=== PATIENT | male | born 1955 | race Hispanic/Latino ===

== ENCOUNTER 2019-06-30 05:46 | Inpatient (IN) | payer BC ==
[2019-06-30] MEDS ORDERED: metroNIDAZOLE 500 MG/100 ML BAG ONE (06:52)
--- NOTE | 2019-06-30 07:45 | CT ---
PRELIMINARY REPORT/[facility]/EMERGENCY AFTER HOURS PROCEDURE: PROCEDURE INFORMATION: Exam: CT Abdomen And Pelvis With Contrast Exam date and time: 06/30/2019 6:10 AM Clinical history: 63 years old, male; Abdominal pain; Patient HX: 63 y/o m presents to ED via transfe r from another ED for sepsis, influenza. He was seen by his pcp x 2 days ago for illness including fe allan with tmax at that time of 102f. PT was dx with influenza at that time and was provided with RX for tamiflu and zofran. PT was prompted to go to other ED early this morning for evaluation o f worsening diarrhea. PT reports > 10 episodes of diarrhea within the past 24 hours. PT states he als o had recent pcp eval for flank pain, nephrolithiasis TECHNIQUE: Imaging protocol: Computed tomography of the abdomen and pelvis with intravenous contrast. COMPARISON: No relevant prior studies available. FINDINGS: Liver: Normal. No mass. Gallbladder and bile ducts: No calcified stones. No ductal dilation. Pancreas: No discrete mass. No ductal dilation. Spleen: No splenomegaly. Adrenals: No mass. Kidneys and ureters: Normal. No hydronephrosis. Stomach and bowel: No obstruction or perforation. Fluid content in colon with mild wall thickening. Appendix: No evidence of appendicitis. Intraperitoneal space: No free air or fluid. No significant fluid collection. Vasculature: No abdominal aortic aneurysm. Lymph nodes: No enlarged lymph nodes. Bladder: Unremarkable. Reproductive: Unremarkable. Bones/joints: Unremarkable. No acute fracture. Soft tissues: Unremarkable. IMPRESSION: Fluid content in colon with mild wall thickening is suggestive of colitis. Thank you for allowing us to participate in the care of your patient. Dictated and Authenticated by: Beatriz Romero MD 06/30/2019 6:38 AM Central Time ([place] & [place]) FINAL REPORT ABDOMEN CT WITH CONTRAST PELVIC CT WITH CONTRAST: Date: 06/30/19 HISTORY: Sepsis. Influenza. Fever. FINDINGS: Appropriate enhancement of the solid organs. Unremarkable gallbladder. Patent portal vein. No evidenc e of bowel obstruction. Limited evaluation due to lack of oral contrast. Normal caliber appendix. Flu id attenuation, scattered throughout the colon, is nonspecific. No evidence of obstruction. Diverticu losis, without evidence of diverticulitis. There are enlarged retroperitoneal and mesenteric lymph no brenden. Correlate for infectious, inflammatory process. Malignancy cannot be entirely excluded, though i s less favored. No acute abnormality in the pelvis. IMPRESSION: This report is in agreement with the preliminary report by [facility]. 1. Scattered fluid in the colon is nonspecific. Correlate clinically for colitis. 2. Diverticulosis, without evidence of diverticulitis. 3. Normal caliber appendix. 4. Enlarged retroperitoneal and mesenteric lymph nodes which may be reactive and due to infectious/i nflammatory process. Correlate for mesenteric lymphadenitis. Neoplastic process cannot be entirely ex cluded. Clinical correlation is essential. CODE T. POS: MARVEL
[2019-06-30 08:04] LABS: Lactic Acid 2.4 mmol/L (0.5-2.2)
[2019-06-30] MEDS ORDERED: Ondansetron ODT 4 MG TAB PO PRN (09:19)
[2019-06-30] MEDS ORDERED: Ondansetron PF 4 MG/2 ML Vial IVP PRN (09:19)
[2019-06-30] MEDS ORDERED: HumaLOG 300 UNITS/3 ML VIAL SC PRN ×2 (09:53)
[2019-06-30] MEDS ORDERED: Dextrose 50% Abboject 50 ML SYRINGE SLOW IVP PRN (09:53)
[2019-06-30] MEDS ORDERED: Insulin Regular 300 UNITS/3 ML VIAL SC PRN (09:53)
[2019-06-30] MEDS ORDERED: Dextrose 5% in Water 1,000 ML IV PRN (09:53)
[2019-06-30] MEDS ORDERED: Sodium Chloride 0.45% 1,000 ML IV SCH (10:00)
--- NOTE | 2019-06-30 10:01 | PDOC.HHP ---
Hospitalist HPI - History of Present Illness Severe diarrhea and fever History of Present Illness: Mr. Ann is a pleasant 63 year old man who presents with complaints of severe diarrhea that started on Friday afternoon. He reports going to lunch with his on Friday at a restaurant and having soup, they returned and had dinner there as well. Friday he started to feel unwell before going to [employer]. He began feeling weak and unable to stand. Upon returning home Friday he began to have severe diarrhea. It persisted through to Friday and so he saw his primary care physician. He was tested for Flu and treated with Tamiflu. States he continued to feel unwell but the diarrhea slowed down some yesterday. Denies any bloody stools. Maintained fluid intake with water, pedialyte and gatorade. No associated vomiting but he had mild nausea on Friday and given antiemetic by his PCP. Yesterday he began to have chills and a fever. At 3 am this morning he woke up to have another watery stool and reports feeling weak with chills. He had a temp of 100.8 and per his he was hyperventilating. ED Course: Patient initially presented to [facility] and underwent labs which showed a left shift. Lactic acid elevated at 3.6 and he was noted to have an MILAGROS. His creatinine was 1.64 and GFR was 42, normally it is >90. He was given IV fluids. UA was done and unremarkable. CXR also unremarkable. CT A/P done and apparently showed nonspecific changes as per discussion with Dr. Hunter who spoke with ED physician. Patient was treated with Flagyl. Hospitalist ROS - Review of Systems Constitutional: reports: fever (has settled.), chills, weakness, malaise ( significantly improved) Eyes: denies: pain, vision change, conjunctivae inflammation, eyelid inflammation, redness, other ENT: denies: ear pain, ear discharge, nose pain, nose discharge, nose congestion , mouth pain, mouth swelling, throat pain, throat swelling, other Respiratory: denies: cough, dry, shortness of breath, hemoptysis, SOB with excertion, pleuritic pain, sputum, wheezing, other Cardiovascular: reports: light headedness (has improved). denies: chest pain, palpitations, orthopnea, paroxysmal noc. dyspnea, edema, other Gastrointestinal: reports: nausea, abdominal pain (generalized abdominal cramping, mild per patient), diarrhea. denies: vomiting, constipation, melena, hematochezia, other Genitourinary: reports: other (urine dark in appearance). denies: dysuria, frequency, incontinence, hematuria, retention Musculoskeletal: denies: neck pain, shoulder pain, arm pain, back pain, hand pain, leg pain, foot pain, other Skin: denies: rash, lesions, mary jo, bruising, other Neurological: denies: weakness, numbness, incoordination, change in speech, confusion, seizures, other Hospitalist History - Past Medical History Cardiac: reports: CAD, HTN Musculoskeletal: reports: Osteoarthritis Renal/: reports: Other (Nephrolithiasis) Endocrine: reports: Diabetes - Past Surgical History Past Surgical History: reports: Other (Cardiac stent Penile surgery) - Social History Smoking Status: Never smoker Alcohol: reports: None Drugs: reports: none Living Situation: With Family Activity level: independent ambulation - Exam General Appearance: NAD, awake alert Eye: PERRL, anicteric sclera ENT: normocephalic atraumatic, no oropharyngeal lesions, dry oral mucosa Neck: supple, no lymphadenopathy Heart: RRR, no murmur, no gallops, no rubs, normal peripheral pulses Respiratory: CTAB, no wheezes, no rales, no ronchi, normal chest expansion, no tachypnea Gastrointestinal: soft, non-tender, non-distended, normal bowel sounds, no palpable masses, no hepatomegaly, no guarding, no rigidity Gastrointestinal - other findings: reports mild diffuse abdominal soreness, not particularly tender on exam Extremities: no cyanosis, no edema Skin: no lesions, no rashes Neurological: cranial nerve grossly intact, normal sensation to touch Musculoskeletal: normal tone, normal strength, no muscle wasting Psychiatric: normal affect, normal behavior, A&O x 3 Hospitalist Results - Labs Result Diagrams: 06/30/19 14:31 Lab results: Lactic Acid 2.4 mmol/L (0.5-2.2) H 06/30/19 07:35 - Radiology Interpretation CT scan - abdomen Status: report reviewed by me (CT A/P: scattered fluid in the colon, nonspecific and clinically correlated with colitis. Divertuclosis present without diverticulitis. Normal appendix. Enlarged retroperitoneal and mesenteric lymph nodes, likely reactive from infectious process.) Hospitalist H&P A/P - Problem (1) Septic colitis Code(s): A09 - INFECTIOUS GASTROENTERITIS AND COLITIS, UNSPECIFIED Status: Acute (2) Fever and chills Code(s): R50.9 - FEVER, UNSPECIFIED Status: Acute (3) MILAGROS (acute kidney injury) Code(s): N17.9 - ACUTE KIDNEY FAILURE, UNSPECIFIED Status: Acute (4) Diabetes mellitus Code(s): E11.9 - TYPE 2 DIABETES MELLITUS WITHOUT COMPLICATIONS Status: Chronic (5) Hypertension Code(s): I10 - ESSENTIAL (PRIMARY) HYPERTENSION Status: Chronic (6) CAD (coronary artery disease) Code(s): I25.10 - ATHSCL HEART DISEASE OF [place] CORONARY ARTERY W/O ANG PCTRS Status: Chronic - Plan Plan: Continue IV fluids and IV antibiotics. Stool studies pending. Contact precautions. Clear liquid diet. Fever and chills have settled. Lactic acid improving. Continue to monitor renal function. Respiratory Viral Panel pending. Monitor glucose. In light of MILAGROS hold home meds. Insulin sliding scale ordered. Monitor BP. He is on low dose Lisinopril only. Will hold for now. CODE STATUS: FULL Surrogate Decision Maker: His Uzma Ann.
[2019-06-30] MEDS ORDERED: Iopamidol 370 76% 100 ML VIAL ONE (10:10)
[2019-06-30 10:29] VITALS: BMI 27.7
[2019-06-30] MEDS: Acetaminophen 325 MG TAB PO PRN ×2 (12:37→18:25)
[2019-06-30] MEDS ORDERED: Dextrose 5 %-0.45 % NaCl 1,000 ML IV SCH (14:15)
[2019-06-30 15:03] LABS: Anion Gap 13 mmol/L (10-20); BUN (Urea Nitrogen) 20 mg/dL (8.4-25.7); Calc. Creatinine Clearance 76 mL/min (70-130); Calcium 8.5 mg/dL (7.8-10.44); Carbon Dioxide 17 mmol/L (23-31); Chloride 105 mmol/L (98-107); Estimated GFR-MDRD 67; Glucose 182 mg/dL (80-115); Magnesium 1.9 mg/dL (1.6-2.6); Sodium 132 mmol/L (136-145)
[2019-06-30] MEDS: metroNIDAZOLE 500 MG in Premix Bag 1 BAG IVPB SCH ×2 (15:24→20:15)
[2019-06-30] MEDS: Sodium Chloride 0.45% 1,000 ML IV SCH (15:25)
[2019-06-30 18:38] LABS: Lactic Acid 2.4 mmol/L (0.5-2.2)
[2019-06-30] MEDS: Zolpidem Tartrate 5 MG TAB PO SCH (20:15)
[2019-06-30] MEDS ORDERED: Non-Formulary Item 1 EACH (Zolpidem Tartrate [Zolpidem Tartrate] 10 MG) PO SCH (21:00)
[2019-07-01] MEDS: Sodium Chloride 0.45% 1,000 ML IV SCH ×2 (01:12→13:13)
[2019-07-01] MEDS: metroNIDAZOLE 500 MG in Premix Bag 1 BAG IVPB SCH ×3 (04:38→21:45)
[2019-07-01] MEDS ORDERED: Potassium Chloride 20 MEQ TAB PO SCH (08:30)
--- NOTE | 2019-07-01 08:35 | PDOC.HOSPP ---
- Subjective Encounter Date: 07/01/19 Encounter Time: 08:30 Subjective: profuse watery diarrhea persists, no blood or significant abd pain - Objective Vital Signs & Weight: Vital Signs (12 hours) Temp Pulse Resp BP Pulse Ox 07/01/19 07:05 98.2 F 94 17 129/74 95 07/01/19 05:40 100.4 F H 07/01/19 04:30 103.1 F H 106 H 18 149/71 H 93 L 07/01/19 00:00 98.8 F 103 H 20 127/69 93 L Weight Weight 177 lb 1 oz I&O: 06/30/19 07/01/19 07/02/19 06:59 06:59 06:59 Intake Total 1700 Balance 1700 Result Diagrams: 06/30/19 14:31 Additional Labs: Accuchecks 07/01/19 06/30/19 06/30/19 04:51 19:19 15:38 POC Glucose 120 H 147 H 146 H 06/30/19 12:04 POC Glucose 147 H Hospitalist ROS - Medication Medications: Active Medications Generic Name Dose Route Start Last Admin Trade Name Freq PRN Reason Stop Dose Admin Acetaminophen 650 mg 06/30/19 12:12 06/30/19 18:25 Tylenol PO 650 mg Q4H PRN Administration Headache/Fever or Pain Metronidazole 500 mg/ Device 100 mls @ 100 mls/hr 06/30/19 14:00 07/01/19 04: 38 IVPB 100 mls Q8HR ARTURO Administration Sodium Chloride 1,000 mls @ 100 mls/hr 06/30/19 14:15 07/01/19 01:12 1/2 Normal Saline IV 1,000 mls .Q10H ARTURO Administration Sodium Chloride 10 ml 06/30/19 21:00 06/30/19 20:16 Flush - Normal Saline IVF 10 ml Q12HR ARTURO Administration Zolpidem Tartrate 10 mg 06/30/19 21:00 06/30/19 20:15 Ambien PO 10 mg HS ARTURO Administration - Exam General Appearance: awake alert Neck: no JVD Respiratory: CTAB, no wheezes Gastrointestinal: soft, non-tender, non-distended Gastrointestinal - other findings: hyperactive bowel sounds Extremities: no edema Hosp A/P (1) Infectious gastroenteritis and colitis, unspecified Code(s): A09 - INFECTIOUS GASTROENTERITIS AND COLITIS, UNSPECIFIED Status: Acute (2) Sepsis syndrome Code(s): [id number] - Status: Acute (3) Bacteremia Code(s): R78.81 - BACTEREMIA Status: Acute (4) Acute kidney failure Status: Acute Qualifiers: Acute renal failure type: unspecified Qualified Code(s): N17.9 - Acute kidney failure, unspecified (5) Lactic acid acidosis Code(s): E87.2 - ACIDOSIS Status: Acute (6) DM type 2 (diabetes mellitus, type 2) Status: Acute Qualifiers: Diabetes mellitus director of alumni relations insulin use: without halfway use Diabetes mellitus complication status: without complication Qualified Code(s): E11.9 - Type 2 diabetes mellitus without complications - Plan iv antibx- change cipro to rocephn iv fluids accu/ssselected home meds- lald ZARIA due to increased creatinine GI consult
[2019-07-01] MEDS: Gabapentin 300 MG CAP PO SCH ×2 (09:30→20:10)
[2019-07-01] MEDS: Atorvastatin Calcium 20 MG TAB PO SCH (09:30)
[2019-07-01] MEDS ORDERED: FLU VACC TS2019-20(65YR UP)/PF 180 MCG/0.5 ML SYRINGE IM ONE (09:30)
[2019-07-01] MEDS: Aspirin 81 mg Enteric Coated Tablet PO SCH (09:30)
[2019-07-01] MEDS: cefTRIAXone\\ROCEPHIN 2 GM in Sodium Chloride 0.9% 100 ML IVPB SCH (10:26)
[2019-07-01] MEDS: Acetaminophen 325 MG TAB PO PRN (12:16)
[2019-07-01] MEDS: metFORMIN 500 MG TAB PO SCH (17:50)
[2019-07-01] MEDS: NS 0.9% w/ 20 MEQ KCL 1,000 ML/1,000 ML BAG IV SCH (20:10)
[2019-07-01] MEDS: Zolpidem Tartrate 5 MG TAB PO SCH (21:45)
[2019-07-02] MEDS: Acetaminophen 325 MG TAB PO PRN (00:46)
[2019-07-02] MEDS: metroNIDAZOLE 500 MG in Premix Bag 1 BAG IVPB SCH ×3 (05:12→21:57)
[2019-07-02] MEDS: NS 0.9% w/ 20 MEQ KCL 1,000 ML/1,000 ML BAG IV SCH (05:12)
[2019-07-02 07:19] LABS: #Eosinphils 0.1 thou/uL (0.0-0.7); #Lymphocytes 1.7 thou/uL (1.20-3.40); #Monocytes 1.1 thou/uL (0.11-0.59); #Neutrophils 4.2 thou/uL (1.40-6.50); %Basophils 0.4 % (0.0-1.0); %Eosinophils 1.1 % (0.0-10.0); %Lymphocytes 24.5 % (21.0-51.0); %Monocytes 14.9 % (0.0-10.0); %Neutrophils 59.2 % (42.0-75.0); Hemoglobin 11.7 g/dL (14.0-18.0); Mean Corpuscular HGB CONC 35.5 g/dL (32.0-36.0); Mean Corpuscular Hemoglobin 31.5 pg (27.0-31.0); Mean Corpuscular Volume 88.9 fL (78.0-98.0); Mean Platelet Volume 6.1 fL (7.4-10.4); Platelet Count 357 thou/uL (130-400); RBC Distribution Width 11.5 % (11.5-14.5); Red Blood Cell (RBC) Count 3.73 mill/uL (4.70-6.10)
[2019-07-02 07:51] LABS: Anion Gap 14 mmol/L (10-20); BUN (Urea Nitrogen) 11 mg/dL (8.4-25.7); Calc. Creatinine Clearance 118 mL/min (70-130); Calcium 8.2 mg/dL (7.8-10.44); Carbon Dioxide 16 mmol/L (23-31); Chloride 109 mmol/L (98-107); Estimated GFR-MDRD Greater than 90; Glucose 106 mg/dL (80-115); Phosphorus 2.5 mg/dL (2.3-4.7); Potassium 2.9 mmol/L (3.5-5.1); Sodium 136 mmol/L (136-145)
[2019-07-02] MEDS: metFORMIN 500 MG TAB PO SCH ×2 (08:32→16:34)
[2019-07-02] MEDS: Atorvastatin Calcium 20 MG TAB PO SCH (08:32)
[2019-07-02] MEDS: cefTRIAXone\\ROCEPHIN 2 GM in Sodium Chloride 0.9% 100 ML IVPB SCH (08:32)
[2019-07-02] MEDS: Aspirin 81 mg Enteric Coated Tablet PO SCH (08:32)
[2019-07-02] MEDS: Gabapentin 300 MG CAP PO SCH ×2 (08:32→21:23)
[2019-07-02] MEDS ORDERED: Potassium Chloride 40 MEQ in Premix Bag 1 BAG IVPB STA (08:42)
[2019-07-02] MEDS ORDERED: Sodium Bicarbonate 150 MEQ in Dextrose 5% in Water 850 ML IV SCH (08:45)
--- NOTE | 2019-07-02 09:09 | CON ---
DATE OF CONSULTATION: 07/01/2019 REASON FOR CONSULT: Diarrhea. HISTORY OF PRESENT ILLNESS: Mr. Ann is a 63-year-old gentleman who became acutely ill on Friday. He reports that he went out to eat at [employer] on Friday evening and again on Friday morning he had some menudo that morning, went to tenriism, then began to feel ill. When he got home, he hit the bathroom and had severe watery diarrhea about every 15 minutes, which was copious. He felt weak with this and really had to get in bed. He had nausea, but no vomiting. It persisted through to Friday, saw his PCP. He reports he was tested for flu. His states this initially told that was equivocally, had Tamiflu, and then when he came here, he was tested for flu again, which reportedly was negative. At home, he had a temperature up to 102, he has been afebrile here. He is going to the bathroom about every 15 minutes at home. Ultimately, he came in once he started to feel quite dehydrated. Here, he was having bowel movement every 3-4 hours now. Stool study showed fecal white cells positive, C difficile negative, Campylobacter negative, shiga toxins negative, stool cultures pending. RSV panel and influenza all negative. Nasal swab, ova and parasite screen negative. He is tolerating liquid diet now. PAST MEDICAL HISTORY: Kidney stones. He has had a previous cardiac stent. He notes he has a history of hypertension, diabetes, and hyperlipidemia. PAST SURGICAL HISTORY: Only kidney stones and a cardiac stent. He also had ureteral obstruction. Colonoscopy 5 years ago which was normal by his report. SOCIAL HISTORY: Does not smoke. Does not drink. Does not use drugs. Lives with his who is here at the bedside. HOME MEDICATIONS: 1. Neurontin. 2. Cialis. 3. Zolpidem. 4. Ecotrin. 5. Tramadol. 6. Meloxicam. 7. Metformin. 8. Atorvastatin. Present medications; 1. Tylenol. 2. Aspirin. 3. Lipitor. 4. Rocephin. 5. Gabapentin. 6. Insulin. 7. Metformin. 8. Flagyl. 9. Half-normal saline at 100 an hour. REVIEW OF SYSTEMS: No history of rashes, myalgias, arthralgias, night sweats, cold chills, shortness of breath, dyspnea on exertion, anginal symptoms. No prior GI symptoms. FAMILY HISTORY: Crohn's in his brother. PHYSICAL EXAMINATION: VITAL SIGNS: T-current 98.2, actually his T-max was 103.1 yesterday, blood pressure 126/75. GENERAL: He is resting comfortably in bed. He is not diaphoretic. He has no distress. LUNGS: Clear. HEART: Regular rate and rhythm without clicks or murmurs. ABDOMEN: Soft and nontender with no rebound or guarding. EXTREMITIES: No clubbing, cyanosis, or edema. I detect no adenopathy in the inguinal, axillary, cervical, or supraclavicular areas. LABORATORY DATA: Sodium 132, potassium 3, it was yesterday, BUN 20, creatinine 1.1, magnesium 1.9. White count was 9, hemoglobin was 15, platelet count was 404, 41 segs, 15% lymphs, bands 37%. Lactic acid was 2.4 on the 9th. His LFTs were normal. CT scan; apparently on review, there were enlarged retroperitoneal mesenteric lymph nodes, scattered fluid in the colon which was nonspecific without any overt inflammatory changes in the colon. ASSESSMENT: Acute onset diarrhea. This is likely viral or bacterial. He has no bloody diarrhea, so this makes invasive infection is less likely. RECOMMENDATIONS: To continue supportive care. No indication for endoscopy at this point in time with the acute onset. I think it is going to change the management. I could check stool for norovirus. If symptoms do not improve, can consider possibilities of lymphoma or other etiologies in light of the reported large retroperitoneal lymph nodes. We will follow along with you. Job ID: [id number]
[2019-07-02] MEDS ORDERED: Potassium Chloride 40 MEQ in Sodium Chloride 0.9% 500 ML IVPB SCH (10:00)
[2019-07-02] MEDS: Potassium Chloride 20 MEQ TAB PO SCH ×3 (10:20→16:34)
--- NOTE | 2019-07-02 15:02 | PDOC.HOSPP ---
- Subjective Encounter Date: 07/02/19 Encounter Time: 12:01 Subjective: Admitted with acute frequent loose stools associated with fever, chills and generalized weakness. Still having frequent loose stools. Fever has subsided. - Objective Vital Signs & Weight: Vital Signs (12 hours) Temp Pulse Resp BP Pulse Ox 07/02/19 08:00 94 L 07/02/19 07:09 97.9 F 77 20 115/57 L 94 L 07/02/19 04:05 98.4 F 83 18 129/75 94 L Weight Admit Weight 177 lb 1 oz Weight 177 lb 1 oz I&O: 07/01/19 07/02/19 07/03/19 06:59 06:59 06:59 Intake Total 1700 1700 Balance 1700 1700 Result Diagrams: 07/02/19 06:14 07/02/19 06:14 Additional Labs: Accuchecks 07/02/19 07/02/19 07/01/19 11:51 04:10 19:12 POC Glucose 139 H 109 140 H 07/01/19 15:22 POC Glucose 112 H Hospitalist ROS - Medication Medications: Active Medications Generic Name Dose Route Start Last Admin Trade Name Freq PRN Reason Stop Dose Admin Acetaminophen 650 mg 06/30/19 12:12 07/02/19 00:46 Tylenol PO 650 mg Q4H PRN Administration Headache/Fever or Pain Aspirin 81 mg 07/01/19 09:00 07/02/19 08:32 Ecotrin PO 81 mg DAILY ARTURO Administration Atorvastatin Calcium 20 mg 07/01/19 09:00 07/02/19 08:32 Lipitor PO 20 mg DAILY ARTURO Administration Gabapentin 300 mg 07/01/19 09:00 07/02/19 08:32 Neurontin PO 300 mg BID ARTURO Administration Metronidazole 500 mg/ Device 100 mls @ 100 mls/hr 06/30/19 14:00 07/02/19 05: 12 IVPB 100 mls Q8HR ARTURO Administration Ceftriaxone Sodium 2 gm/ 100 mls @ 200 mls/hr 07/01/19 09:00 07/02/19 08:32 Sodium Chloride IVPB 100 mls 0900 ARTURO Administration Metformin HCl 500 mg 07/01/19 17:00 07/02/19 08:32 Glucophage PO 500 mg BID-WM ARTURO Administration Potassium Chloride 40 meq 07/02/19 09:00 07/02/19 12:58 K-Dur PO 07/02/19 17:01 40 meq 0900,1300,1700 ARTURO Administration Sodium Chloride 10 ml 06/30/19 21:00 07/02/19 08:33 Flush - Normal Saline IVF 10 ml Q12HR ARTURO Administration Zolpidem Tartrate 10 mg 06/30/19 21:00 07/01/19 21:45 Ambien PO 10 mg HS ARTURO Administration - Exam General Appearance: awake alert Eye: anicteric sclera ENT: normocephalic atraumatic, moist mucosa Neck: supple, symmetric, no JVD Heart: RRR Respiratory: no wheezes, no rales, no ronchi, normal chest expansion Gastrointestinal: soft, non-tender, non-distended, normal bowel sounds Extremities: no cyanosis, no edema Neurological: cranial nerve grossly intact, no focal deficits Psychiatric: normal affect, A&O x 3 Hosp A/P (1) Infectious colitis Code(s): A09 - INFECTIOUS GASTROENTERITIS AND COLITIS, UNSPECIFIED Status: Acute (2) Metabolic acidosis Code(s): E87.2 - ACIDOSIS Status: Acute (3) Hypokalemia Code(s): E87.6 - HYPOKALEMIA Status: Acute (4) Acute anemia Code(s): D64.9 - ANEMIA, UNSPECIFIED Status: Acute (5) MILAGROS (acute kidney injury) Code(s): N17.9 - ACUTE KIDNEY FAILURE, UNSPECIFIED Status: Acute (6) DM type 2 (diabetes mellitus, type 2) Status: Acute Qualifiers: Diabetes mellitus custodial insulin use: without marine oil terminal superintendent use Diabetes mellitus complication status: without complication Qualified Code(s): E11.9 - Type 2 diabetes mellitus without complications (7) Fever and chills Code(s): R50.9 - FEVER, UNSPECIFIED Status: Acute (8) Lactic acid acidosis Code(s): E87.2 - ACIDOSIS Status: Acute (9) Sepsis syndrome Code(s): [id number] - Status: Acute (10) CAD (coronary artery disease) Code(s): I25.10 - ATHSCL HEART DISEASE OF [place] CORONARY ARTERY W/O ANG PCTRS Status: Chronic (11) Hypertension Code(s): I10 - ESSENTIAL (PRIMARY) HYPERTENSION Status: Chronic - Plan Start sodium bicarb infusion Replete serum potassium with potassium chloride. We will give 160 meq today. Diet as tolerated. Await microbiological test. recheck electrolytes and correct as needed.
[2019-07-02 16:29] LABS: Anion Gap 12 mmol/L (10-20); BUN (Urea Nitrogen) 11 mg/dL (8.4-25.7); Calc. Creatinine Clearance 115 mL/min (70-130); Calcium 8.3 mg/dL (7.8-10.44); Carbon Dioxide 17 mmol/L (23-31); Chloride 110 mmol/L (98-107); Estimated GFR-MDRD Greater than 90; Glucose 144 mg/dL (80-115); Potassium 3.6 mmol/L (3.5-5.1); Sodium 135 mmol/L (136-145)
[2019-07-02] MEDS: Diphenoxylate HCl/Atropine Tablet PO PRN ×2 (16:34→22:24)
--- NOTE | 2019-07-02 17:20 | PRG ---
DATE OF SERVICE: 07/02/2019 SUBJECTIVE: Mr. Ann states he has had about 7 stools, says that they are all loose and watery. There is no blood. There are no cramps or pain. He is tolerating a bland diet. Denies any rigors or chills or arthralgias. OBJECTIVE: VITAL SIGNS: T-max 100 last night at midnight, he had been 101 yesterday afternoon around 12, 97.9 now; pulse 77; blood pressure is 115/57. GENERAL: He looks healthy. LUNGS: Clear. HEART: Regular rate and rhythm without clicks, rubs, or murmurs. ABDOMEN: Soft and nontender. SKIN: There are no rashes. MUSCULOSKELETAL: He has no arthralgias or myalgias. LYMPHS: No evidence of axillary, inguinal adenopathy. LABORATORY DATA: White count 7, hemoglobin 11.7, platelet count 357. Sodium 135, potassium 3.6, BUN and creatinine 11 and 0.7. Renick virus pending. Stool culture preliminary shows no gram-negative ilan, few gram-positive ilan cultures negative. ASSESSMENT: Acute diarrheal illness, this is a bit long for food-borne infection, this is what he thought it was when he got sick on Friday. He has had some fever with this. This may be viral. He did have some mild adenopathy. I have reviewed the scan and there does not appear to be any pathologic nodes. With the acute onset, they are probably reactive. RECOMMENDATIONS: 1. Start some Lomotil. 2. Continue bland diet. 3. If cultures are negative, I would discontinue the antibiotics after tomorrow's dose, that will be 3 days' worth. Job ID: [id number]
[2019-07-02] MEDS: Sodium Bicarbonate Tab 325 MG TAB PO SCH (21:23)
[2019-07-02] MEDS: Zolpidem Tartrate 5 MG TAB PO SCH (21:23)
[2019-07-03] MEDS: metroNIDAZOLE 500 MG in Premix Bag 1 BAG IVPB SCH ×3 (05:50→21:37)
[2019-07-03] MEDS: Aspirin 81 mg Enteric Coated Tablet PO SCH (08:45)
[2019-07-03] MEDS: Atorvastatin Calcium 20 MG TAB PO SCH (08:45)
[2019-07-03] MEDS: Gabapentin 300 MG CAP PO SCH ×2 (08:45→20:15)
[2019-07-03] MEDS: Sodium Bicarbonate Tab 325 MG TAB PO SCH ×2 (08:45→20:14)
[2019-07-03] MEDS: metFORMIN 500 MG TAB PO SCH ×2 (08:45→17:24)
[2019-07-03] MEDS: cefTRIAXone\\ROCEPHIN 2 GM in Sodium Chloride 0.9% 100 ML IVPB SCH (08:48)
[2019-07-03] MEDS: Diphenoxylate HCl/Atropine Tablet PO PRN (15:03)
--- NOTE | 2019-07-03 16:22 | PRG ---
DATE OF SERVICE: 07/03/2019 SUBJECTIVE: Mr. Ann notes he actually had 5 loose stools this morning, but he feels like it is getting better. He has had no fever for 24 hours now. He is not sure if he got any Imodium. I have talked to his nurse, he was not given any Imodium. OBJECTIVE: VITAL SIGNS: Temperature is 98, pulse 87, blood pressure 115/67. LUNGS: Clear. ABDOMEN: Soft and nontender. There is no rebound. There is no guarding. LABORATORY DATA: No labs were drawn today. Glucose is 107. Stool for Campylobacter culture and C diff all negative , ova parasites negative. Stool lactoferrin positive. Norovirus pending. ASSESSMENT: Diarrhea of suspected viral etiology. If he continues to have no fever, I would stop his antibiotics tomorrow morning. I have instructed the nurse on giving the patient the Lomotil that was ordered to give p.r.n. for diarrhea. We will follow along with you. Job ID: [id number] [id number]
--- NOTE | 2019-07-03 19:59 | PDOC.HOSPP ---
- Subjective Encounter Date: 07/03/19 Encounter Time: 20:00 Subjective: Patient is doing better. He had three bowel movements today, they are more semi- formed. No abdominal pain, fevers. He states it started after eating fajitas and fish on Friday. Took tamiflu by PCP without any relief and progressed to fevers and chills. He is ambulating - Objective Vital Signs & Weight: Vital Signs (12 hours) Pulse Ox 07/03/19 08:00 95 Weight Admit Weight 177 lb 1 oz Weight 177 lb 1 oz I&O: 07/02/19 07/03/19 07/04/19 06:59 06:59 06:59 Intake Total 1700 2600 Balance 1700 2600 Result Diagrams: 07/02/19 06:14 07/02/19 15:59 Additional Labs: Accuchecks 07/03/19 07/03/19 07/03/19 16:16 11:13 04:32 POC Glucose 153 H 107 134 H 07/02/19 19:20 POC Glucose 182 H Hospitalist ROS - Review of Systems Constitutional: denies: fever, chills, sweats Eyes: denies: vision change ENT: denies: ear discharge Cardiovascular: denies: chest pain, palpitations, orthopnea Gastrointestinal: denies: nausea, vomiting, abdominal pain Genitourinary: denies: dysuria, frequency - Medication Medications: Active Medications Generic Name Dose Route Start Last Admin Trade Name Freq PRN Reason Stop Dose Admin Acetaminophen 650 mg 06/30/19 12:12 07/02/19 00:46 Tylenol PO 650 mg Q4H PRN Administration Headache/Fever or Pain Aspirin 81 mg 07/01/19 09:00 07/03/19 08:45 Ecotrin PO 81 mg DAILY ARTURO Administration Atorvastatin Calcium 20 mg 07/01/19 09:00 07/03/19 08:45 Lipitor PO 20 mg DAILY ARTURO Administration Diphenoxylate HCl/Atropine 1 tab 07/02/19 16:24 07/03/19 15:03 Lomotil PO 1 tab Q6H PRN Administration Diarrhea/Loose Stools Gabapentin 300 mg 07/01/19 09:00 07/03/19 08:45 Neurontin PO 300 mg BID ARTURO Administration Metronidazole 500 mg/ Device 100 mls @ 100 mls/hr 06/30/19 14:00 07/03/19 15: 03 IVPB 100 mls Q8HR ARTURO Administration Ceftriaxone Sodium 2 gm/ 100 mls @ 200 mls/hr 07/01/19 09:00 07/03/19 08:48 Sodium Chloride IVPB 100 mls 0900 ARTURO Administration Sodium Bicarbonate 150 meq/ 1,000 mls @ 100 mls/hr 07/02/19 08:45 07/02/19 15 :59 Dextrose/Water IV 1,000 mls INF ARTURO Administration Metformin HCl 500 mg 07/01/19 17:00 07/03/19 17:24 Glucophage PO 500 mg BID-WM ARTURO Administration Sodium Bicarbonate 650 mg 07/02/19 21:00 07/03/19 08:45 Bicarbonate, Sodium PO 650 mg BID ARTURO Administration Sodium Chloride 10 ml 06/30/19 21:00 07/03/19 08:48 Flush - Normal Saline IVF 10 ml Q12HR ARTURO Administration Zolpidem Tartrate 10 mg 06/30/19 21:00 07/02/19 21:23 Ambien PO 10 mg HS ARTURO Administration - Exam Eye: PERRL, anicteric sclera ENT: normocephalic atraumatic, no oropharyngeal lesions Neck: no JVD Heart: RRR, no murmur, no gallops Respiratory: CTAB, no wheezes, no rales Gastrointestinal: soft, non-tender, non-distended Extremities: no clubbing, no edema Skin: normal turgor, no lesions Neurological: cranial nerve grossly intact, normal sensation to touch Musculoskeletal: normal tone, normal strength, no muscle wasting Psychiatric: normal affect, normal behavior, A&O x 3 Hosp A/P - Plan Consults: other CT abdomen: negative except for enlarged retroperitoneal and mesenteric lymph nodes This is a 64 year old male with CAD, HTN, diabetes who presented with severe diarrhea. Stool cultures to date negative Severe diarrhea -flagyl started 06/30, ceftriaxone 07/01. CT abdomen no acute pathology. Recheck labs today - stool cultures for C diff, campylobacter, ova and parasites negative - GI following, recommending discontinuing antibiotics tomorrow if no fever CAD - continue aspirin and statin Diabetes type II with neuropathy - metformin - insulin sliding scale - gabapentin for neuropathy Hypertension - hold lisinopril Hyperlipidemia - continue statin Dispo: likely d/c tomorow
[2019-07-03] MEDS: Zolpidem Tartrate 5 MG TAB PO SCH (20:15)
[2019-07-03 20:42] LABS: Anion Gap 13 mmol/L (10-20); BUN (Urea Nitrogen) 9 mg/dL (8.4-25.7); Calc. Creatinine Clearance 112 mL/min (70-130); Calcium 8.6 mg/dL (7.8-10.44); Carbon Dioxide 23 mmol/L (23-31); Chloride 107 mmol/L (98-107); Estimated GFR-MDRD Greater than 90; Glucose 167 mg/dL (80-115); Sodium 140 mmol/L (136-145)
[2019-07-03 20:47] LABS: Potassium 2.6 mmol/L (3.5-5.1)
[2019-07-03] MEDS ORDERED: Potassium Chloride 20 MEQ in Premix Bag 1 BAG IVPB SCH (21:00)
[2019-07-03] MEDS ORDERED: Potassium Chloride 20 MEQ TAB PO SCH (22:30)
[2019-07-04] MEDS: metroNIDAZOLE 500 MG in Premix Bag 1 BAG IVPB SCH (05:47)
[2019-07-04 07:02] LABS: Hemoglobin 11.8 g/dL (14.0-18.0); Mean Corpuscular HGB CONC 34.8 g/dL (32.0-36.0); Mean Corpuscular Hemoglobin 31.2 pg (27.0-31.0); Mean Corpuscular Volume 89.8 fL (78.0-98.0); Mean Platelet Volume 5.6 fL (7.4-10.4); Platelet Count 451 thou/uL (130-400); RBC Distribution Width 11.7 % (11.5-14.5); Red Blood Cell (RBC) Count 3.79 mill/uL (4.70-6.10); White Blood Cell (WBC) Count 6.8 thou/uL (4.8-10.8)
[2019-07-04 07:21] LABS: Anion Gap 10 mmol/L (10-20); BUN (Urea Nitrogen) 9 mg/dL (8.4-25.7); Calc. Creatinine Clearance 110 mL/min (70-130); Calcium 8.7 mg/dL (7.8-10.44); Carbon Dioxide 26 mmol/L (23-31); Chloride 107 mmol/L (98-107); Estimated GFR-MDRD Greater than 90; Glucose 117 mg/dL (80-115); Sodium 140 mmol/L (136-145)
[2019-07-04] MEDS ORDERED: Pot Chloride/Pot Bicarb/Cit Ac 25 mEq Effervescent Tablet PO SCH (08:00)
[2019-07-04] MEDS ORDERED: Potassium Bicarbonate/Cit Ac 25 MEQ TAB PO SCH (08:00)
[2019-07-04] MEDS: Gabapentin 300 MG CAP PO SCH (08:48)
[2019-07-04] MEDS: Aspirin 81 mg Enteric Coated Tablet PO SCH (08:48)
[2019-07-04] MEDS: Atorvastatin Calcium 20 MG TAB PO SCH (08:48)
[2019-07-04] MEDS: metFORMIN 500 MG TAB PO SCH (08:48)
[2019-07-04] MEDS: Sodium Bicarbonate Tab 325 MG TAB PO SCH (08:48)
[2019-07-04] MEDS: cefTRIAXone\\ROCEPHIN 2 GM in Sodium Chloride 0.9% 100 ML IVPB SCH (08:56)
[2019-07-04] MEDS ORDERED: Potassium Chloride 20 MEQ TAB PO SCH (09:30)
[2019-07-04 12:24] LABS: Potassium 3.5 mmol/L (3.5-5.1)
--- NOTE | 2019-07-04 13:34 | PRG ---
DATE OF SERVICE: 07/04/2019 SUBJECTIVE: Mr. Ann states his diarrhea is much better. He has had no further fevers. He has not taken any Imodium. His antibiotics have been discontinued. OBJECTIVE: VITAL SIGNS: Temperature is 98, pulse 74, blood pressure 132/84, T-max last 24 hours 98.4. LABORATORY DATA: Potassium 3.5 this morning, sodium 140. BUN and creatinine 9 and 0.75. White count 6.8, hemoglobin 11.8, platelet count 451. Stool negative for Campylobacter, negative for Shiga toxins. Cultures, few gram-positive, normal enteric ilan, rare gram-negatives. Final pending. C difficile negative. Rapid parasite screen negative. Lactoferrin positive. Norovirus pending. ASSESSMENT: 1. Acute diarrhea illness with fever. Fever now resolved over 48 hours. Diarrhea improving. Elevated platelet count, etiology unclear. Previously, treated with Tamiflu for possible flu, but his flu panel was negative. Stool cultures are negative except for white blood cells. CT of the chest show some mild retroperitoneal and mesenteric lymph node enlargement, which is felt to be reactive. He has received a course of antibiotics and I agree with discontinuing those as we have had no positive cultures. 2. History of polyps in 2010. RECOMMENDATIONS: I think the patient can go home. I would stop antibiotics and use p.r.n. Imodium. If he has return of fever or worsening diarrhea, he can return. Otherwise, we will see him back in the office in a few weeks. We will schedule his followup surveillance colonoscopy for a few weeks from now. If he has relapsed symptoms, we could consider a diagnostic colonoscopy, but this also seems to be an acute infectious process. Job ID: [id number]
[2019-07-04 13:54] VITALS: BP 124/78; TEMP 98.4
--- NOTE | 2019-07-06 08:45 | PQF ---
ALAINA BRAXTON JR, CHRISTOPHER J MD [id number] CLINICAL DOCUMENTATION CLARIFICATION FORM: POST DISCHARGE Addendum to original discharge summary date: ____ Late entry note date: __ DATE:07/06/2019 ATTN: URSULA CRUZ MD Please exercise your independent, professional judgment in responding to the clarification form. Clinical indicators are provided on the bottom of this form for your review Please check appropriate box(s) to clarify if the following diagnosis has been ruled in or ruled out: Sepsis [ ] Ruled in diagnosis [ ] Continue to treat [ ] Resolved [ ] Ruled out diagnosis [ ] Cannot rule out diagnosis [ ] Other diagnosis [ ] Unable to determine For continuity of documentation, please document condition throughout progress notes and discharge summary. Thank You. CLINICAL INDICATORS - SIGNS / SYMPTOMS / LABS Tachycardic-Documented in ED provider report on 06/30 by Gena Correa DO Severe sepsis-Documented in ED provider report on 06/30 by Gena Correa DO Lactic acid elevated at 3.6-Documented in H&P on 06/30 by Lisa Rodriguez PA-C Fever and chills-Documented in H&P on 06/30 by Lisa Rodriguez PA-C MILAGROS-Documented in H&P on 06/30 by Lisa Rodriguez PA-C Sepsis syndrome,Bacteremia,lactic acidosis-Documented in Hospitalist PN on by Juanjose Angel MD Acute diarrheal illness, this is a bit long for food-borne infection-Documented in PN on 07/02 by Ursula Cruz MD RISK FACTORS Severe diarrhea-Documented in Hospitalist PN on 07/03 by Yane Yang MD Fever-Documented in PN on 07/04 by Ursula Cruz MD TREATMENTS IV antibx-Change cipro to rocephn-Documented in Hospitalist PN on 07/01 by Juanjose Angel MD Ceftriaxone 07/01-Documented in Hospitalist PN on 07/03 by Yane Yang MD [employer] Medical Language Specialist [employer] Win[employer] (This form is maintained as a part of the permanent medical record) 2014 [employer] All Rights Reserved Alex [email or web address] [not provided] MTDD
--- NOTE | 2019-07-06 09:15 | DIS ---
DATE OF ADMISSION: 06/30/2019 DATE OF DISCHARGE: 07/04/2019 ADMITTING DIAGNOSES: Septic colitis and acute kidney injury. DISCHARGE DIAGNOSES: Sepsis secondary to Salmonella gastroenteritis SECONDARY DISCHARGE DIAGNOSES: Coronary artery disease, type 2 diabetes with neuropathy, hypertension, and hyperlipidemia. CONSULTATION: Gastroenterology with Dr. Ata Cruz. PROCEDURES: None. HISTORY AND HOSPITAL COURSE: This is a 64-year-old male with a past medical history of CAD and diabetes, who presented with severe diarrhea that had started on 06/27. The patient had reported eating soup and fajitas and upon returning home started having severe diarrhea. He was treated with Tamiflu, but continued to feel unwell, and therefore presented to the ER. In the ER, the patient was found to be hypokalemic with the potassium of 2.6 and febrile with a fever of 102.3 and a heart rate of 119. He was admitted for further workup. He underwent CT abdomen which showed lymphadenopathy but no other acute findings. He received cipro and flagyl on 06/30 and was switched to ceftriaxone and flagyl on 07/01. He was continued on antibiotics until 07/04. The patient reported improvement in his diarrhea to 3 bowel movements a day. Patient requested imodium and it was given to the patient since C diff, stool for ova and parasites and bacterial cultures were negative up to that point. Antibiotics were discontinued on 07/04. The patient was discharged with instructions to follow up with Dr. Cruz to get a colonoscopy in 2-3 weeks. After discharge stool culture came back positive for Salmonella. Patient was called on 07/07 however unable to reach anybody. Informed Dr. Cruz who will also reach out to the patient and follow up. Hypokalemia: patient had a potassium of 2.6 on admission which resolved to 3.5 on discharge Anemia: patient had hemoglobin of 11.8/34.0. He will get colonoscopy as an outpatient. He should get repeat CBC with PCP CAD: continue aspirin and statin Diabetes type II with neuropathy: he will resume his metformin and gabapentin Hypertension: resume lisinopril Hyperlipidemia: continue statin PERTINENT LABS: K 2.6 on 07/03 which improved to 3.5 on 07/04 Hb 11.8/34 on 07/04/19 PERTINENT IMAGING: CT abdomen: scattered colonic diverticula. Enlarged retroperitoneal and mesenteric lymph node which could be neoplastic or inflammatory process DISCHARGE PHYSICAL EXAM: Vitals: temp 98.4, HR 78, RR 18, BP 124/78, O2 sat 95% ENT: normocephalic atraumatic, no oropharyngeal lesions Neck: no JVD Heart: RRR, no murmur, no gallops Respiratory: CTAB, no wheezes, no rales Gastrointestinal: soft, non-tender, non-distended Extremities: no clubbing, no edema Skin: normal turgor, no lesions Neurological: cranial nerve grossly intact, normal sensation to touch Musculoskeletal: normal tone, normal strength, no muscle wasting Psychiatric: normal affect, normal behavior, A&O x 3 DISCHARGE CONDITION: stable DIET: regular ACTIVITY: as tolerated DISCHARGE MEDICATIONS: aspirin 81 mg daily atorvastsatin 20 mg daily gabapentin 300 mg pob id lisinopril 2.5 mg po daily meloxicam 7.5 mg po daily metformin 500 mg po bid tramadol 25 mg po daily prn zolpidem 10 mg po qhs MTDD
[2019-07-07 06:10] LABS: Norovirus GI Negative (Negative); Norovirus GII Negative (Negative)
== END 2019-07-04 13:59 | disposition home or self-care (01) | DRG 872 ==
LOC: ERS 05:46 → T4-A 08:42
PROVIDERS: ADMIT Internal Medicine; ATTEND Internal Medicine
DX: A02.1 Salmonella sepsis (principal); N17.9 Acute kidney failure, unspecified; E87.2 Acidosis; A02.0 Salmonella enteritis; R19.7 Diarrhea, unspecified; R50.9 Fever, unspecified; R59.9 Enlarged lymph nodes, unspecified; D64.9 Anemia, unspecified; E11.9 Type 2 diabetes mellitus without complications; I10 Essential (primary) hypertension; I25.10 Atherosclerotic heart disease of native coronary artery without angina pectoris; E87.6 Hypokalemia; E78.5 Hyperlipidemia, unspecified
CPT/HCPCS: 36415; 36416; 74177; 80048; 83605; 83630; 83735; 84100; 85025; 85027; 87045; 87046; 87077; 87186; 87324; 87328; 87329; 87427; 87449; 87633; 87798; 96365; J0696; J0744; J3480; J3490; J7050; J7070; Q9967

== ENCOUNTER 2021-09-17 12:26 | Emergency (ER) | payer BC | END 2021-09-17 13:50 | disposition left against medical advice (07) | LOC: ERS 12:26 | DX: Z53.21 Procedure and treatment not carried out due to patient leaving prior to being seen by health care provider (principal) ==